=== PATIENT | female | born 1965 | race Caucasian/White ===

== ENCOUNTER 2018-07-27 05:46 | Emergency (ER) | payer BC ==
[2018-07-27] MEDS ORDERED: Aspirin 81 MG Tab.Chew PO ONE (05:49)
[2018-07-27] MEDS ORDERED: Sodium Chloride 0.9% 1,000 ML IV ONE (05:49)
--- NOTE | 2018-07-27 05:50 | EDM.PDOC ---
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 Past medical history: As per history of present illness and as reviewed below otherwise noncontributory. Surgical history: As per history of present illness and as reviewed below otherwise noncontributory. Social history: No reported history of drug or alcohol abuse. Family history: As per history of present illness and as reviewed below otherwise noncontributory. Physical exam: HEENT: Atraumatic, normocephalic, pupils reactive, negative for conjunctival pallor or scleral icterus, mucous membranes moist, throat clear, neck supple, nontender, trachea midline. Lungs: Clear to auscultation, breath sounds equal bilaterally, chest nontender. Heart: S1S2, regular, negative for clicks, rubs, or JVD. Abdomen: Soft, nondistended, nontender. Negative for masses or hepatosplenomegaly. Negative for costovertebral tenderness. Pelvis: Stable nontender. Genitourinary: Deferred. Rectal: Deferred. Extremities: Atraumatic, negative for cords or calf pain. Neurovascular unremarkable. Neuro: Awake, alert, oriented. Cranial nerves II through XII unremarkable. Cerebellum unremarkable. Motor and sensory unremarkable throughout. Exam nonfocal. Diagnostics: [CBC CMP UA troponin EKG Chest 1 view] Therapeutics: [Oral saline ] Impression: [ anxiety/panic Hypothyroid sinus tachycardia resolved chronic history of baseline ] Definitive disposition and diagnosis as appropriate pending reevaluation and review of above. no pain Pain Score (Numeric/FACES): 0 - Related Data Allergies Allergy/AdvReac Type Severity Reaction Status Date / Time No Known Allergies Allergy Verified 07/27/18 05:50 Home Meds: Home Meds Citalopram Hydrobromide [Celexa] 0 mg PO DAILY 07/27/18 [History] Cyclobenzaprine [Flexeril] 0 mg PO 07/27/18 [History] Telmisartan [Micardis] 0 mg PO DAILY 07/27/18 [History] ED ROS GENERAL - Review of Systems Review Of Systems: See Below ED EXAM, GENERAL - Physical Exam Exam: See Below Course - Vital Signs Last Recorded V/S: Last Vital Signs Temp 97.6 F 07/27/18 05:50 Pulse 107 H 07/27/18 06:09 Resp 18 07/27/18 06:09 BP 159/81 H 07/27/18 06:09 Pulse Ox 98 07/27/18 06:09 - Orders/Labs/Meds Orders: Active Orders 24 hr Category Date Time Status EKG Documentation Completion [RC] STAT Care 07/27/18 05:50 Active CULTURE URINE [RM] Stat Lab 07/27/18 07:10 Received Labs: Laboratory Tests 07/27/18 07/27/18 07/27/18 Range/Units 06:00 06:00 07:10 WBC 8.87 (4.0-11.0) K/uL RBC 4.06 L (4.30-5.90) M/uL Hgb 12.5 (12.0-16.0) g/dL Hct 38.7 (36.0-46.0) % MCV 95.3 (80.0-98.0) fL MCH 30.8 (27.0-32.0) pg MCHC 32.3 (31.0-37.0) g/dL RDW Std Deviation 48.2 (28.0-62.0) fl RDW Coeff of Isiah 14 (11.0-15.0) % Plt Count 391 (150-400) K/uL MPV 8.70 (7.40-12.00) fL Neut % (Auto) 63.6 (48.0-80.0) % Lymph % (Auto) 30.8 (16.0-40.0) % [place] % (Auto) 5.1 (0.0-15.0) % Eos % (Auto) 0.0 (0.0-7.0) % Baso % (Auto) 0.5 (0.0-1.5) % Neut # (Auto) 5.7 (1.4-5.7) K/uL Lymph # (Auto) 2.7 H (0.6-2.4) K/uL [place] # (Auto) 0.5 (0.0-0.8) K/uL Eos # (Auto) 0.0 (0.0-0.7) K/uL Baso # (Auto) 0.0 (0.0-0.1) K/uL Nucleated RBC % 0.0 /100WBC Nucleated RBCs # 0 K/uL Sodium 137 (136-145) mmol/L Potassium 3.9 (3.5-5.1) mmol/L Chloride 100 (98-107) mmol/L Carbon Dioxide 23.1 (21.0-32.0) mmol/L BUN 33 H (7.0-18.0) mg/dL Creatinine 1.3 H (0.6-1.0) mg/dL Est Cr Clr Drug Dosing 39.58 mL/min Estimated GFR (MDRD) 42.8 ml/min Glucose 102 (74-106) mg/dL Calcium 9.6 (8.5-10.1) mg/dL Total Bilirubin 0.2 (0.2-1.0) mg/dL AST 30 (15-37) IU/L ALT 35 (14-63) IU/L Alkaline Phosphatase 91 (46-116) U/L Troponin I < 0.050 (0.000-0.056) ng/mL Total Protein 8.3 H (6.4-8.2) g/dL Albumin 3.9 (3.4-5.0) g/dL Globulin 4.4 H (2.6-4.0) g/dL Albumin/Globulin Ratio 0.9 (0.9-1.6) Lipase 133 (73-393) U/L TSH 3rd Generation 4.72 H (0.36-3.74) uIU/mL Urine Color YELLOW Urine Appearance CLEAR Urine pH 5.5 (5.0-8.0) Ur Specific [place] 1.025 (1.001-1.035) Urine Protein NEGATIVE (NEGATIVE) mg/dL Urine Glucose (UA) NEGATIVE (NEGATIVE) mg/dL Urine Ketones TRACE H (NEGATIVE) mg/dL Urine Occult Blood NEGATIVE (NEGATIVE) Urine Nitrite NEGATIVE (NEGATIVE) Urine Bilirubin NEGATIVE (NEGATIVE) Urine Urobilinogen 0.2 (<2.0) EU/dL Ur Leukocyte Esterase TRACE H (NEGATIVE) Urine RBC 0-2 (0-2/HPF) Urine WBC 1-3 (0-5/HPF) Ur Epithelial Cells MANY (NONE-FEW) Urine Bacteria RARE (NEGATIVE) Meds: Medications Discontinued Medications Generic Name Dose Route Start Last Admin Trade Name [place] PRN Reason Stop Dose Admin Aspirin 324 mg 07/27/18 05:49 07/27/18 06:08 Aspirin PO 07/27/18 05:50 324 mg ONETIME ONE Administration Sodium Chloride 1,000 mls @ 999 mls/hr 07/27/18 05:49 07/27/18 06:08 Normal Saline IV 07/27/18 06:49 999 mls/hr STAT ONE Administration Departure - Departure Time of Disposition: 07:30 Disposition: Home, Self-Care 01 Condition: Good Clinical Impression: Anxiety Forms: ED Department Discharge Additional Instructions: The following information is given to patients seen in the emergency department who are being discharged to home. This information is to outline your options for follow-up care. We provide all patients seen in our emergency department with a follow-up referral. The need for follow-up, as well as the timing and circumstances, are variable depending upon the specifics of your emergency department visit. If you don't have a primary care physician on staff, we will provide you with a referral. We always advise you to contact your personal physician following an emergency department visit to inform them of the circumstance of the visit and for follow-up with them and/or the need for any referrals to a consulting specialist. The emergency department will also refer you to a specialist when appropriate. This referral assures that you have the opportunity for follow-up care with a specialist. All of these measure are taken in an effort to provide you with optimal care, which includes your follow-up. Under all circumstances we always encourage you to contact your private physician who remains a resource for coordinating your care. When calling for follow-up care, please make the office aware that this follow-up is from your recent emergency room visit. If for any reason you are refused follow-up, please contact the [facility] emergency department at and asked to speak to the emergency department charge nurse. - My Orders Last 24 Hours: My Active Orders 07/27/18 05:50 EKG Documentation Completion [RC] STAT 07/27/18 07:10 CULTURE URINE [RM] Stat - Assessment/Plan Last 24 Hours: My Active Orders 07/27/18 05:50 EKG Documentation Completion [RC] STAT 07/27/18 07:10 CULTURE URINE [RM] Stat
--- NOTE | 2018-07-27 06:38 | CR ---
HISTORY: Shortness of breath. TECHNIQUE: Portable frontal view the chest. COMPARISON: None. FINDINGS: No airspace consolidation. No pleural effusion or pneumothorax. Pulmonary vasculature and cardiomediastinal silhouette are within normal limits. IMPRESSION: No acute cardiopulmonary abnormality. Dictated by Harvinder Woodall MD @ Jul 27 2018 6:35AM Signed by Dr. Harvinder Woodall @ Jul 27 2018 6:36AM
[2018-07-27 06:41] LABS: CHLORIDE,CL 100 mmol/L (98-107); SODIUM,NA 137 mmol/L (136-145)
== END 2018-07-27 08:13 | disposition home or self-care (01) ==
LOC: MW.ED 05:46
DX: F41.9 Anxiety disorder, unspecified (principal); E03.9 Hypothyroidism, unspecified
CPT/HCPCS: 36415; 71045; 80053; 81001; 83690; 84443; 84484; 85025; 87086; 93005; 96360; 99285; A9270; J7040

== ENCOUNTER 2018-08-13 00:39 | Emergency (ER) | payer BC ==
[2018-08-13] MEDS ORDERED: Sodium Chloride 0.9% 1,000 ML IV ONE (00:53)
[2018-08-13] MEDS ORDERED: Sodium Chloride 0.9% 2.5 ML Syringe FLUSH PRN (00:53)
[2018-08-13] MEDS ORDERED: Aspirin 81 MG Tab.Chew PO ONE (00:53)
[2018-08-13] MEDS ORDERED: Sodium Chloride 0.9% 10 ML Syringe FLUSH PRN (00:53)
--- NOTE | 2018-08-13 00:57 | EDM.PDOC ---
ED HPI GENERAL MEDICAL PROBLEM - General Chief Complaint: Cardiovascular Problem Stated Complaint: HIGH BLOOD PRESSURE Time Seen by Provider: 08/13/18 00:42 - History of Present Illness INITIAL COMMENTS - FREE TEXT/NARRATIVE: HISTORY AND PHYSICAL: History of present illness: The patient is a 52-year-old female has a history of hypertension and takes medication and follows at [facility] with Dr. Bentley and was seen here in our emergency department on July 27 for palpitations tachycardia and shortness of breath. She was evaluated with labs and a chest x-ray and was dispositioned home recommending a Holter/heart monitor to be placed. She did follow up with her provider in the clinic and they did not have any heart monitors available and they said they would contact her if they had any. The patient was told on Tuesday that they would not be getting any in until next week and she turned her phone off and they did contact her leaving a message that one became available but she did not have it placed. When she was seen by her provider in the clinic he did increase her Micardis dose due to her elevated blood pressure and the patient said that she does have a history of anxiety. The patient tells me that ever since she was seen here in July she has never really felt quite right not great but she was told by her provider that her thyroid was okay despite the elevated TSH obtained here. Her provider was aware that she was still not feeling great and she was still having these episodic palpitations. She says that with the palpitation she does get a little short of breath and she is not passing out or blacking out and she has not had any head neck or back trauma and has no head neck or back pain. She is eating and drinking normally and drinks a lot of water. She's had no abdominal pain vomiting or diarrhea no fevers chills or upper respiratory symptoms. She is here tonight because she was at work and she was feeling more lightheaded every time she position changed and she felt like she might pass out. She was sent by work for evaluation again here in the ED. The patient did not pass out. She does physically say that the palpitations and tachycardia are constant since she was seen by her provider in the clinic and she is feeling them right now as well and though her heart rate is 90s here in the ED. Review of systems: As per history of present illness and below otherwise all systems reviewed and negative. Past medical history: As per history of present illness and as reviewed below otherwise noncontributory. Surgical history: As per history of present illness and as reviewed below otherwise noncontributory. Social history: No reported history of drug or alcohol abuse. Family history: As per history of present illness and as reviewed below otherwise noncontributory. Physical exam: General: Well-developed well-nourished overweight female who is nontoxic and vital signs were noted by me. HEENT: Atraumatic, normocephalic, pupils reactive, negative for conjunctival pallor or scleral icterus, mucous membranes moist, throat clear, neck supple, nontender, trachea midline. There is no cervical adenopathy or nuchal rigidity Lungs: Clear to auscultation, breath sounds equal bilaterally, chest nontender. Heart: S1S2, regular rate and rhythm no overt murmurs, negative for clicks, rubs , or JVD. Abdomen: Soft, nondistended, nontender. Negative for masses or hepatosplenomegaly. Negative for costovertebral tenderness. Pelvis: Stable nontender. Genitourinary: Deferred. Rectal: Deferred. Extremities: Atraumatic, negative for cords or calf pain. Neurovascular unremarkable. No pedal edema or leg asymmetry Neuro: Awake, alert, oriented. Cranial nerves II through XII unremarkable. Cerebellum unremarkable. Motor and sensory unremarkable throughout. Exam nonfocal. Diagnostics: EKG chest x-ray CBC CMP orthostatic vitals. Troponin Therapeutics: IV O2 monitor IV fluids aspirin When I had the patient go from supine to sitting to do a lung exam the patient said that she felt somewhat lightheaded but when we did orthostatic vitals she was completely asymptomatic. The patient and family bedside are aware of all testing results and that she needs to proceed with her outpatient workup and work with her provider on her blood pressure. Advised her to position change very slowly and reasons to return to the ED and she is comfortable with this Impression: Palpitations with lightheadedness, history of same Definitive disposition and diagnosis as appropriate pending reevaluation and review of above. - Related Data Allergies Allergy/AdvReac Type Severity Reaction Status Date / Time codeine Allergy Rash Verified 08/13/18 00:54 Home Meds: Home Meds Citalopram Hydrobromide [Celexa] 10 mg PO DAILY 07/27/18 [History] Cyclobenzaprine [Flexeril] 5 mg PO ASDIRECTED PRN 07/27/18 [History] Telmisartan [Micardis] 100 mg PO DAILY 08/13/18 [History] Past Medical History HEENT History: Reports: None Cardiovascular History: Reports: Hypertension Respiratory History: Reports: None Gastrointestinal History: Reports: None Genitourinary History: Reports: None PHYSICAL THERAPY NURSE History: Reports: None Neurological History: Reports: None Psychiatric History: Reports: None Endocrine/Metabolic History: Reports: None Hematologic History: Reports: None Dermatologic History: Reports: None - Infectious Disease History Infectious Disease History: Reports: Chicken Pox, Measles, Mumps, Shingles - Past Surgical History Female Surgical History: Reports: Tubal Ligation Musculoskeletal Surgical History: Reports: None Social & Family History - Family History Family Medical History: Noncontributory ED ROS GENERAL - Review of Systems Review Of Systems: ROS reveals no pertinent complaints other than HPI. ED EXAM, GENERAL - Physical Exam Exam: See Below (See dictation) Course - Vital Signs Last Recorded V/S: Last Vital Signs Temp 36.2 C 08/13/18 00:49 Pulse 112 H 08/13/18 00:49 Resp 20 08/13/18 00:49 BP 184/88 H 08/13/18 00:49 Pulse Ox 96 08/13/18 00:49 Orthostatic Blood Pressure [ 148/84 Standing] Orthostatic Blood Pressure [ 154/71 Sitting] Orthostatic Blood Pressure [ 156/79 Supine] - Orders/Labs/Meds Orders: Active Orders 24 hr Category Date Time Status Cardiac Monitoring [RC] . DIRECTED Care 08/13/18 00:53 Active EKG Documentation Completion [RC] STAT Care 08/13/18 00:53 Active Orthostatic Vital Signs [RC] ASDIRECTED Care 08/13/18 00:53 Active Oxygen Therapy, ED [RC] ASDIRECTED Care 08/13/18 00:53 Active UA RFX JODY AND CULT IF INDIC [URIN] Stat Lab 08/13/18 00:53 Ordered Sodium Chloride 0.9% [Saline Flush] Med 08/13/18 00:53 Active 10 ml FLUSH ASDIRECTED PRN Sodium Chloride 0.9% [Saline Flush] Med 08/13/18 00:53 Active 2.5 ml FLUSH ASDIRECTED PRN Saline Lock Insert [OM.PC] Stat Ot 08/13/18 00:53 Ordered Medication Orders Sodium Chloride (Saline Flush) 10 ml FLUSH ASDIRECTED PRN PRN Reason: Keep Vein Open Sodium Chloride (Saline Flush) 2.5 ml FLUSH ASDIRECTED PRN PRN Reason: Keep Vein Open Labs: Laboratory Tests 08/13/18 08/13/18 Range/Units 01:02 01:02 WBC 8.36 (4.0-11.0) K/uL RBC 4.00 L (4.30-5.90) M/uL Hgb 12.4 (12.0-16.0) g/dL Hct 37.6 (36.0-46.0) % MCV 94.0 (80.0-98.0) fL MCH 31.0 (27.0-32.0) pg MCHC 33.0 (31.0-37.0) g/dL RDW Std Deviation 44.0 (28.0-62.0) fl RDW Coeff of Isiah 13 (11.0-15.0) % Plt Count 406 H (150-400) K/uL MPV 8.40 (7.40-12.00) fL Neut % (Auto) 63.7 (48.0-80.0) % Lymph % (Auto) 27.9 (16.0-40.0) % [place] % (Auto) 7.9 (0.0-15.0) % Eos % (Auto) 0.0 (0.0-7.0) % Baso % (Auto) 0.5 (0.0-1.5) % Neut # (Auto) 5.3 (1.4-5.7) K/uL Lymph # (Auto) 2.3 (0.6-2.4) K/uL [place] # (Auto) 0.7 (0.0-0.8) K/uL Eos # (Auto) 0.0 (0.0-0.7) K/uL Baso # (Auto) 0.0 (0.0-0.1) K/uL Sodium 139 (136-145) mmol/L Potassium 3.5 (3.5-5.1) mmol/L Chloride 101 (98-107) mmol/L Carbon Dioxide 26.0 (21.0-32.0) mmol/L BUN 15 (7.0-18.0) mg/dL Creatinine 1.0 (0.6-1.0) mg/dL Est Cr Clr Drug Dosing 51.46 mL/min Estimated GFR (MDRD) 58.0 ml/min Glucose 143 H (74-106) mg/dL Calcium 9.1 (8.5-10.1) mg/dL Total Bilirubin 0.1 L (0.2-1.0) mg/dL AST 21 (15-37) IU/L ALT 29 (14-63) IU/L Alkaline Phosphatase 90 (46-116) U/L Troponin I < 0.050 (0.000-0.056) ng/mL Total Protein 7.9 (6.4-8.2) g/dL Albumin 3.6 (3.4-5.0) g/dL Globulin 4.3 H (2.6-4.0) g/dL Albumin/Globulin Ratio 0.8 L (0.9-1.6) Meds: Medications Generic Name Dose Route Start Last Admin Trade Name Freq PRN Reason Stop Dose Admin Sodium Chloride 10 ml 08/13/18 00:53 Saline Flush FLUSH ASDIRECTED PRN Keep Vein Open Sodium Chloride 2.5 ml 08/13/18 00:53 Saline Flush FLUSH ASDIRECTED PRN Keep Vein Open Discontinued Medications Generic Name Dose Route Start Last Admin Trade Name Freq PRN Reason Stop Dose Admin Aspirin 324 mg 08/13/18 00:53 08/13/18 01:11 Aspirin PO 08/13/18 00:54 324 mg ONETIME ONE Administration Sodium Chloride 1,000 mls @ 999 mls/hr 08/13/18 00:53 08/13/18 01:11 Normal Saline IV 08/13/18 01:53 999 mls/hr STAT ONE Administration Departure - Departure Time of Disposition: 01:59 Disposition: Home, Self-Care 01 Reason for Transfer *Q: Primary PCI Indicated Condition: Good Clinical Impression: Lightheadedness, Palpitations Referrals: PCP,None [Primary Care Provider] - Forms: ED Department Discharge Additional Instructions: The following information is given to patients seen in the emergency department who are being discharged to home. This information is to outline your options for follow-up care. We provide all patients seen in our emergency department with a follow-up referral. The need for follow-up, as well as the timing and circumstances, are variable depending upon the specifics of your emergency department visit. If you don't have a primary care physician on staff, we will provide you with a referral. We always advise you to contact your personal physician following an emergency department visit to inform them of the circumstance of the visit and for follow-up with them and/or the need for any referrals to a consulting specialist. The emergency department will also refer you to a specialist when appropriate. This referral assures that you have the opportunity for followup care with a specialist. All of these measure are taken in an effort to provide you with optimal care, which includes your followup. Under all circumstances we always encourage you to contact your private physician who remains a resource for coordinating your care. When calling for followup care, please make the office aware that this follow-up is from your recent emergency room visit. If for any reason you are refused follow-up, please contact the [facility] emergency department at and ask to speak to the emergency department charge nurse. [address] [place] [address] Please get your heart monitor placed as we discussed and follow-up with your provider at [facility]. Return to ER as needed and as discussed continue all home medications - My Orders Last 24 Hours: My Active Orders 08/13/18 00:53 Cardiac Monitoring [RC] . DIRECTED EKG Documentation Completion [RC] STAT Orthostatic Vital Signs [RC] ASDIRECTED Oxygen Therapy, ED [RC] ASDIRECTED UA RFX JODY AND CULT IF INDIC [URIN] Stat Sodium Chloride 0.9% [Saline Flush] 10 ml FLUSH ASDIRECTED PRN Sodium Chloride 0.9% [Saline Flush] 2.5 ml FLUSH ASDIRECTED PRN Saline Lock Insert [OM.PC] Stat - Assessment/Plan Last 24 Hours: My Active Orders 08/13/18 00:53 Cardiac Monitoring [RC] . DIRECTED EKG Documentation Completion [RC] STAT Orthostatic Vital Signs [RC] ASDIRECTED Oxygen Therapy, ED [RC] ASDIRECTED UA RFX JODY AND CULT IF INDIC [URIN] Stat Sodium Chloride 0.9% [Saline Flush] 10 ml FLUSH ASDIRECTED PRN Sodium Chloride 0.9% [Saline Flush] 2.5 ml FLUSH ASDIRECTED PRN Saline Lock Insert [OM.PC] Stat
[2018-08-13 01:35] LABS: CHLORIDE,CL 101 mmol/L (98-107); SODIUM,NA 139 mmol/L (136-145)
--- NOTE | 2018-08-13 01:40 | CR ---
INDICATION: Chest pain TECHNIQUE: Chest 1 views COMPARISON: Chest x-ray 07/27/2018 FINDINGS: Cardiovascular and mediastinum: Heart size and vasculature are normal in caliber and appearance. Lungs and pleural spaces: Lungs are clear. No sign of infiltrate or mass. No sign of pleural effusion. No pneumothorax. Bones and soft tissues: No significant findings. IMPRESSION: No acute findings and no significant changes from the prior exam. Dictated by Aung Lange MD @ Aug 13 2018 1:38AM Signed by Dr. Aung Lange @ Aug 13 2018 1:39AM
== END 2018-08-13 02:10 | disposition home or self-care (01) ==
LOC: MW.ED 00:39
DX: R00.2 Palpitations (principal); R42 Dizziness and giddiness; I10 Essential (primary) hypertension; Z79.899 Other long term (current) drug therapy
CPT/HCPCS: 36415; 71045; 80053; 84484; 85025; 93005; 96360; 99285; A9270; J7040